=== PATIENT | female | born 1940 | race Caucasian/White ===

== ENCOUNTER 2018-01-29 09:03 | Emergency (ER) | payer MEDICARE, BC ==
--- NOTE | 2018-01-29 09:22 | Emergency Department Record ---
History of Present Illness - General Chief complaint: Flu Like Symptoms Stated complaint: FLU LIKE SYMPTOMS Time Seen by Provider: 01/29/18 09:06 Source: Patient Mode of Arrival: Ambulatory Limitations: No limitations - History of Present Illness Initial comments: 77 yo female presents to ED for evaluation of feeling weak, shaky, and nauseated for the past 2 days. Patient denies fevers, chills, or cough symptoms , but does report a history of UTIs and does reports lower abdominal cramping symptoms. Patient also report history of atrial fibrillation, on Coumadin. Patient denies focal weakness on examination or headache symptoms. MD Complaint: Generalized weakness Onset/Timin Location: Generalized Severity: Moderate Consistency: Constant Improves with: None Worsens with: None Associated Symptoms: Nausea/vomiting - Gobles Coma Scale Eye Response: (4) Open spontaneously Motor Response: (6) Obeys commands Verbal Response: (5) Oriented Gobles Total: 15 - Related Data Home Medications Medication Instructions Recorded Confirmed Last Taken Aspirin [Aspirin EC] 325 mg PO DAILY 01/29/18 01/29/18 1 Day Ago ~01/28/18 Bifidobacterium Infantis [Align] 4 mg PO DAILY 01/29/18 01/29/18 1 Day Ago ~01/28/18 Enalapril Maleate [Vasotec] 5 mg PO DAILY 01/29/18 01/29/18 1 Day Ago ~01/28/18 Omeprazole 40 mg PO DAILY 01/29/18 01/29/18 1 Day Ago ~01/28/18 Sennosides [Senna Laxative] 8.6 mg PO DAILY 01/29/18 01/29/18 1 Day Ago ~01/28/18 Simvastatin [Zocor] 5 mg PO DAILY 01/29/18 01/29/18 1 Day Ago ~01/28/18 Sotalol HCl [Sotalol] 80 mg PO DAILY 01/29/18 01/29/18 1 Day Ago ~01/28/18 Warfarin Sodium [Coumadin] 7 mg PO DAILY 01/29/18 01/29/18 1 Day Ago ~01/28/18 Previous Rx's Medication Instructions Recorded Metronidazole [Flagyl] 500 mg PO TID #30 tablet 01/29/18 Ondansetron [Zofran Odt] 4 mg PO Q8H PRN #20 tab.rapdis 01/29/18 Sulfamethoxazole/Trimethoprim 1 each PO BID #20 tablet 01/29/18 [Bactrim Ds Tablet] Allergies Allergy/AdvReac Type Severity Reaction Status Date / Time Penicillins Allergy HIVES Verified 01/29/18 09:21 codeine AdvReac HYPERSENSIT Verified 01/29/18 09:21 IVITY Sulfa (Sulfonamide AdvReac ABDOMINAL Verified 01/29/18 09:21 Antibiotics) PAIN Review of Systems Constitutional: Reports: Chills, Malaise. Denies: Fever, Night sweats Eyes: Denies: Eye discharge, Eye pain ENT: Denies: Congestion, Ear pain, Epistaxis Respiratory: Denies: Cough, Dyspnea Cardiovascular: Denies: Chest pain, Dyspnea on exertion Endocrine: Reports: Fatigue. Denies: Heat or cold intolerance Gastrointestinal: Reports: Abdominal pain, Nausea. Denies: Vomiting Genitourinary: Denies: Incontinence, Retention Musculoskeletal: Denies: Arthralgia, Back pain Skin: Denies: Bruising, Change in color Neurological: Denies: Abnormal gait, Confusion, Headache, Seizure Psychiatric: Denies: Anxiety Hematological/Lymphatic: Reports: Easy bleeding, Easy bruising. Denies: Anemia , Blood Clots Physical Exam - General General Appearance: Alert, Oriented x3, Cooperative, Mild distress Limitations: No limitations - Head Head exam: Atraumatic, Normocephalic, Normal inspection Head exam detail: negative: Abrasion, Contusion, Hatfield's sign, General tenderness, Hematoma, Laceration - Eye Eye exam: Normal appearance. negative: Conjunctival injection, Periorbital swelling, Periorbital tenderness, Scleral icterus - ENT Ear exam: negative: Auricular hematoma, Auricular trauma Nasal Exam: negative: Active bleeding, Discharge, Dried blood, Foreign body Mouth exam: negative: Drooling, Laceration, Muffled voice, Tongue elevation - Neck Neck exam: Normal inspection. negative: Meningismus, Tenderness - Respiratory Respiratory exam: Normal lung sounds bilaterally. negative: Rales, Respiratory distress, Rhonchi, Stridor - Cardiovascular Cardiovascular Exam: Regular rate, Normal rhythm, Normal heart sounds - GI/Abdominal GI/Abdominal exam: Soft, Tenderness (TTP LLQ on examination, no rebound or guarding are present). negative: Rebound, Rigid - Rectal Rectal exam: Deferred - exam: Deferred - Extremities Extremities exam: Normal inspection. negative: Calf tenderness, Tenderness - Back Back exam: Denies: CVA tenderness (R), CVA tenderness (L) - Neurological Neurological exam: Alert, Normal gait, Oriented X3 - Psychiatric Psychiatric exam: Normal affect, Normal mood - Skin Skin exam: Normal color. negative: Abrasion Type of lesion: negative: abrasion Course - Reevaluation(s) Reevaluation #1: 01/29/18 09:26 EKG: NSR 67 Normal axis, normal intervals No acute ST-T wave changes Reevaluation #2: 01/29/18 10:30 Labs reviewed, INR 2.8 UA: 3-5 WBCs 3-6 Epithelial cells Few Bacteria Patient was updated on all results thus far, reports that she is resting comfortably at this time. Reevaluation #3: 01/29/18 11:17 CT Abdomen and Pelvis: Bowel wall thickening of the sigmoid colon c/w diverticulitis No free air or abscess Subtle hypodenisty of the pancreas, cannot exclude underlying mass-recommend MR of the abdomen as outpatient. Patient was updated on all results, will initiate treatment with Bactrim and Flagyl as directed with instructions for outpatient follow-up for MR of the abdomen. Patient is well appearing and stable for discharge at this time. Medical Decision Making - Lab Data Result diagrams: 01/29/18 09:30 01/29/18 09:30 Disposition Disposition: Discharge Clinical Impression: Diverticulitis Disposition: Home, Self-Care Condition: (2) Stable Instructions: Diverticulitis (ED) Additional Instructions: Return to ED if your symptoms worsen or if you have any concerns. Zofran, Bactrim, and Flagyl as directed. Recommend MRI of the abdomen for further evaluation of a hypodensity to the pancreas. Follow-up with your family doctor in 3-5 days as directed. Prescriptions: Metronidazole [Flagyl] 500 mg PO TID #30 tablet Ondansetron [Zofran Odt] 4 mg PO Q8H PRN #20 tab.rapdis PRN Reason: Nausea/Vomiting Sulfamethoxazole/Trimethoprim [Bactrim Ds Tablet] 1 each PO BID #20 tablet Forms: Patient Portal Access Time of Disposition: 11:21 Quality - Quality Measures Quality Measures: N/A - Blood Pressure Screening Does Patient Have Any of the Following: No Blood Pressure Classification: Pre-Hypertensive BP Reading Systolic Measurement: 127 Diastolic Measurement: 67 Screening for High Blood Pressure: < Pre-Hypertensive BP, F/U Documented > [ [id number]] Pre-Hypertensive Follow-up Interventions: Referral to alternative/primary care provider.
[2018-01-29] MEDS ORDERED: 0.9 % SODIUM CHLORIDE 1000ML 500 ML IV SCH (09:30)
[2018-01-29 09:43] LABS: BASO % 0.2 % (0-6); EOS % 0.9 % (0-6); GRAN % 69.5 % (47-80); HEMATOCRIT 48.5 % (35.0-47.0); LYMPH % 18.7 % (16-45); MEAN CELL VOLUME 86.6 fl (81-97); MEAN PLATELET VOLUME 9.3 fl (7.4-10.4); MONO % 10.7 % (0-9); PLATELET COUNT 329 K/uL (130-400); RED CELL DISTRIBUTION WIDTH 14.8 % (11.5-14.5); URINE APPEARANCE CLEAR; URINE BILIRUBIN MODERATE (NEGATIVE); URINE BLOOD SMALL (NEGATIVE); URINE COLOR YELLOW; URINE GLUCOSE (UA) NEGATIVE (NEGATIVE); URINE KETONE 15 mg/dL (NEGATIVE); URINE LEUKOCYTE ESTERASE TRACE (NEGATIVE); URINE NITRITE NEGATIVE (NEGATIVE); WHITE BLOOD COUNT W/O DIFF 11.3 K/uL (4.2-12.2)
[2018-01-29 09:51] LABS: URINE BACTERIA FEW; URINE HYALINE CAST 16 - 25 /lpf; URINE RBC 0 - 2 (NONE SEEN)
[2018-01-29 09:52] LABS: URINE MUCUS 1+
[2018-01-29 09:55] LABS: MEAN CORPUSCULAR HEMOGLOBIN 28.5 pg (27-33)
[2018-01-29 09:59] LABS: ALB/GLOB RATIO 1.2 (1.1-1.8); ALBUMIN 4.1 g/dL (4.0-5.0); ALKALINE PHOSPHATASE 91 U/L (35-104); ALT/SGPT 14 U/L (<33); AST/SGOT 18 U/L (10.0-35.0); BLOOD UREA NITROGEN 17 mg/dL (8-23); CREATININE 0.7 mg/dL (0.5-0.9); EST GLOMERULAR FILTRATION RATE > 60 mL/min; GLUCOSE,RANDOM 119 mg/dL (74-109); TOTAL PROTEIN 7.6 g/dL (6.6-8.7)
[2018-01-29 10:01] LABS: INR 2.8; PROTHROMBIN TIME (PATIENT) 30.7 SECONDS (9.5-12.1)
[2018-01-29] MEDS ORDERED: METRONIDAZOLE 250 MG TABLET PO ONE (11:22)
[2018-01-29] MEDS ORDERED: TMP/SMZ 160MG/800MG TAB PO ONE (11:22)
--- NOTE | 2018-01-31 09:48 | CT SCAN REPORT ---
EXAM: CT OF THE ABDOMEN AND PELVIS WITH CONTRAST HISTORY: ABDOMINAL PAIN WITH NAUSEA. TECHNIQUE: Contrast enhanced helical CT examination of the abdomen and pelvis was performed including delayed images through the kidneys with 100 ml of Omnipaque 300 utilized. Oral contrast was not utilized limiting evaluation of bowel. Comparison: None. FINDINGS: There is mild dependent atelectasis in each lung base. The lung bases are otherwise clear and there is no pleural or pericardial effusion. The heart is not enlarged. The gallbladder is surgically absent. There is mild prominent of the central biliary tree with the common hepatic duct/common bile duct measuring up to 12 mm. No definite obstructing lesion. These findings likely relate to a physiologic response to surgical absence of the gallbladder. The liver, spleen, left adrenal gland and kidneys are normal in appearance. There is minor calcification within the limbs of the right adrenal gland consistent with remote hemorrhage or sequela of prior infection. The right adrenal gland is otherwise normal in appearance. There is a subtle area of hypodensity within the anterior aspects of the pancreatic head measuring 1.4 x 2.2 cm. This may just relate to focal fatty infiltration though a true mass cannot be entirely excluded. Comparison to prior examinations if any exist is recommended. If stability cannot be confirmed, further evaluation with pre and post contrast administration, multiphase MRI or CT examination is recommended. The pancreas is otherwise unremarkable. No intraabdominal nor retroperitoneal lymphadenopathy is seen. The portal vein and splenic vein are patent. The central mesenteric vasculature appears patent. There is mild diffuse atherosclerosis without aneurysmal dilatation of the abdominal aorta nor iliac arteries. No pelvic mass nor adenopathy. Evaluation of the urinary bladder is limited by lack of distention. No definite focal bladder abnormality is seen. There is no evidence of bowel obstruction. There is colonic diverticulosis most pronounced in the sigmoid region. There is segmental wall thickening of the proximal sigmoid colon with adjacent fat stranding likely relating to colitis/diverticulitis. No definite extraluminal air nor evidence of abscess. There is trace free fluid in the dependent pelvis. The possibility of neoplasm causing the wall thickening cannot be entirely excluded. The uterus is surgically absent. No lytic or blastic bone lesion. There are degenerative changes scattered throughout the visualized spine. IMPRESSION: 1. COLONIC DIVERTICULOSIS MOST PRONOUNCED IN THE SIGMOID REGION. SEGMENTAL WALL THICKENING OF THE PROXIMAL SIGMOID COLON WITH ADJACENT FAT STRANDING CONSISTENT WITH COLITIS/DIVERTICULITIS. NO EVIDENCE OF ABSCESS NOR EXTRALUMINAL AIR THOUGH THERE IS A SMALL AMOUNT OF FREE FLUID IN THE DEPENDENT PELVIS. 2. SURGICAL ABSENCE OF THE UTERUS AND GALLBLADDER. MINOR PROMINENCE OF THE CENTRAL BILIARY TREE LIKELY RELATING TO A PHYSIOLOGIC RESPONSE TO SURGICAL ABSENCE OF THE GALLBLADDER. 3. SUBTLE 1.4 X 2.2 CM AREA OF HYPODENSITY IN THE ANTERIOR ASPECT OF THE PANCREATIC HEAD, DISCUSSED ABOVE. 4. BENIGN CALCIFICATION WITHIN THE RIGHT ADRENAL GLAND. JOB NUMBER: [id number] AND [id number] [facility]
== END 2018-01-29 12:03 | disposition home or self-care (01) ==
LOC: ER 09:03
DX: K57.92 Diverticulitis of intestine, part unspecified, without perforation or abscess without bleeding (principal); R11.2 Nausea with vomiting, unspecified; I48.91 Unspecified atrial fibrillation; Z79.01 Long term (current) use of anticoagulants
CPT/HCPCS: 99284 ×2; 96360; 85025; 85610; 80053; 81001; 84484; 74177; 93005; 93010; Q9967; J3490; J7030

== ENCOUNTER 2018-04-07 13:02 | Day surgery (SDC) | payer MEDICARE, BC ==
[2018-04-07] MEDS ORDERED: PROPOFOL 10 MG/ML VIAL IV ONE (13:03)
[2018-04-07] MEDS ORDERED: MIDAZOLAM HCL 2MG/2ML VIAL IV ONE (13:03)
[2018-04-07] MEDS ORDERED: LIDOCAINE 2% MDV (20MG/ML) 20ML VIAL IV ONE (13:03)
--- NOTE | 2018-04-09 18:00 | Operative Note ---
DATE OF SURGERY: 04/07/2018 OPERATION: COLONOSCOPY to the cecum. INDICATION: Colorectal cancer screening. Also, patient with recent episode of diverticulitis. ANESTHESIA: Intravenous sedation was administered by the department of anesthesiology and included Diprivan titrated to effect. PROCEDURE: Following informed consent from this alert individual including a discussion of the risks and benefits of the procedure and an opportunity for the patient to ask questions, the patient was in the left lateral decubitus position. A digital rectal examination was performed. No abnormalities were noted. Following this, the Olympus [id number] video colonoscope was inserted into the rectum without resistance. The rectal mucosa had a normal appearance with normal folds and distensibility. The sigmoid colon had fairly extensive diverticulosis noted throughout. The colonoscope was then farther advanced up through the bowel to the level of the cecum without much difficulty. Throughout the remainder of the bowel, on initial inspection, the mucosa was unremarkable. The cecum was well defined by noting the appendiceal orifice and ileocecal valve. From the base of the cecum, the colonoscope was then slowly withdrawn. There was a total of 10 polyps noted and removed with cold snare polypectomy. All polyps measured between 4-6 mm in size. There were 3 noted in the ascending colon, 4 in the transverse colon, and 3 in the descending colon, again, all removed with cold snare polypectomy. Again, diverticulosis was apparent throughout the left colon but predominantly in the sigmoid region. The rectum was evaluated in antegrade and retrograde fashion and found to be unremarkable. The endoscope was straightened and withdrawn. The colon preparation was good. The patient tolerated the procedure well and was returned to the recovery area in stable condition. IMPRESSION: 1. A total of 10 polyps removed as described above with 3 in the ascending colon, 4 in the transverse colon, and 3 in the descending colon measuring between 4-6 mm in size. 2. Sigmoid diverticulosis. RECOMMENDATIONS: The patient was advised she should receive a copy of her pathology report at home in the next 2-3 weeks. If not, she was asked to call my office to review the results of testing today. Further recommendations forthcoming pending those results. Followup will also be with Anali Wilson DO. As always, thank you for allowing me to participate in the care of your patient. CC: DO SAWYER MelendezD
== END 2018-04-07 15:34 | disposition home or self-care (01) ==
LOC: HOP 13:02
PROVIDERS: ATTEND Internal Medicine Gastroenterology
DX: Z12.11 Encounter for screening for malignant neoplasm of colon (principal); Z87.19 Personal history of other diseases of the digestive system; D12.2 Benign neoplasm of ascending colon; D12.4 Benign neoplasm of descending colon; D12.3 Benign neoplasm of transverse colon; K57.30 Diverticulosis of large intestine without perforation or abscess without bleeding; I48.91 Unspecified atrial fibrillation; E78.00 Pure hypercholesterolemia, unspecified